=== PATIENT | female | born 1995 | race Caucasian/White ===

== ENCOUNTER → 2016-09-07 | Outpatient (CLI) | payer BC ==
--- NOTE | 2016-09-07 12:14 | DI ---
History: Lumbago, left-sided sciatica. Procedure: 5 view. Findings: Alignment is anatomic. The facets appear normal. No evidence of spondylolysis nor spondylol isthesis identified. Impression: Unremarkable 5 view lumbar spine study
== END ==
LOC: RAD 11:09
PROVIDERS: ATTEND Student in an Organized Health Care Education/Training Program
DX: M54.42 Lumbago with sciatica, left side (principal); Z82.61 Family history of arthritis
CPT/HCPCS: 36415; 72110; 85652; 86140